=== PATIENT | male | born 2000 | race African-American/Black ===

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

== ENCOUNTER 2018-06-21 09:29 | Emergency (ER) | payer BC, SELFPAY ==
[2018-06-21] MEDS ORDERED: Bacitracin Zinc 1 Packet ONE (10:15)
[2018-06-21] MEDS ORDERED: Cephalexin 250 MG CAP ONE (10:15)
[2018-06-21] MEDS ORDERED: Adacel (T-DAP) 0.5 ML SYRINGE ONE (10:15)
[2018-06-21] MEDS ORDERED: Cephalexin 500 MG CAP ONE (10:15)
[2018-06-21] MEDS ORDERED: Lidocaine 1% 20 ML MDV ONE (10:15)
== END 2018-06-21 10:45 | disposition home or self-care (01) ==
LOC: MADERS 09:29
DX: S61.215A Laceration without foreign body of left ring finger without damage to nail, initial encounter (principal); Z23 Encounter for immunization; F17.210 Nicotine dependence, cigarettes, uncomplicated; W26.9XXA Contact with unspecified sharp object(s), initial encounter
CPT/HCPCS: 64450; 90471; 90715; J2001